=== PATIENT | male | born 1970 | race Caucasian/White ===

== ENCOUNTER 2020-11-22 17:36 | Emergency (ER) | payer OTHER ==
[2020-11-22 17:55] VITALS: BP 149/93; PULSE 68; RESP 16; TEMP 98.7
[2020-11-22] MEDS ORDERED: OFLOXACIN 0.3% OPHTH DROPS 5 ML BOTTLE LEFT EAR STA (18:31)
--- NOTE | 2020-11-22 18:32 | ED ---
ENT HPI - General Chief complaint: ENT Stated complaint: Lt Ear Bleeding Time Seen by Provider: 11/22/20 18:03 Source: patient Mode of arrival: ambulatory Limitations: no limitations - History of Present Illness Initial comments: 50-year-old male patient presents to the emergency department today for evaluation of blood coming from his left ear. Patient states that he did clean his ear with Q-tip last night, states he had no blood at that time. States today he felt like his ear was muffled with some pressure. States that he went to scratch his ear today and noticed blood coming from the canal. Reports some mild tenderness. Denies any significant pain. His any fever or chills. States he [place]. Denies any other symptoms or concerns. - Related Data Allergies Allergy/AdvReac Type Severity Reaction Status Date / Time No Known Allergies Allergy Verified 11/22/20 17:55 Review of Systems ROS Statement: Those systems with pertinent positive or pertinent negative responses have been documented in the HPI. ROS Other: All systems not noted in ROS Statement are negative. Past Medical History Past Medical History: Diabetes Mellitus History of Any Multi-Drug Resistant Organisms: None Reported Past Surgical History: Joint Replacement Additional Past Surgical History / Comment(s): left hip replacement Past Psychological History: No Psychological Hx Reported Smoking Status: Current every day smoker Past Alcohol Use History: None Reported, Abuse Past Drug Use History: None Reported General Exam Limitations: no limitations General appearance: alert, in no apparent distress, other (This well-developed, well-nourished adult male patient in no acute distress. Vital signs upon presentation are temperature 98.7F, pulse 68, respirations 16, blood pressure 149/93, pulse ox 97% on room air.) Eye exam: Present: normal appearance, PERRL, EOMI. Absent: scleral icterus, conjunctival injection, periorbital swelling ENT exam: Present: normal exam, normal oropharynx, mucous membranes moist, other (There is bloody drainage in the left ear canal. Some soft tissue swelling and tenderness noted as well.). Absent: TM's normal bilaterally ((But hasn't secured by blood.) Respiratory exam: Present: normal lung sounds bilaterally. Absent: respiratory distress, wheezes, rales, rhonchi, stridor Cardiovascular Exam: Present: regular rate, normal rhythm, normal heart sounds. Absent: systolic murmur, diastolic murmur, rubs, gallop, clicks Neurological exam: Present: alert, oriented X3, CN II-XII intact Psychiatric exam: Present: normal affect, normal mood Skin exam: Present: warm, dry, intact, normal color. Absent: rash Course Vital Signs 11/22/20 17:52 Temperature 98.7 F Pulse Rate 68 Respiratory 16 Rate Blood Pressure 149/93 O2 Sat by Pulse 97 Oximetry Medical Decision Making - Medical Decision Making 50-year-old male patient presents for evaluation of bloody drainage from the left ear. Physical examination did reveal bloody drainage in the left ear canal some soft tissue swelling and tenderness. Tympanogram was obscured by bloody drainage. He was given also oxygen dropped a possible otitis externa. Will be discharged with follow up with ENT specialty as soon as possible. He is instructed to follow-up with his primary care physician for recheck in 1-2 days. Return parameters were discussed in detail. He verbalizes understanding and agrees with this plan. Case discussed with my attending Dr. Hyman who also evaluated the patient. Disposition Clinical Impression: Left otitis externa Disposition: HOME SELF-CARE Condition: Good Instructions (If sedation given, give patient instructions): Otitis Externa (ED) Additional Instructions: Do 5 drops to the left ear twice daily. Follow up with ENT specialist as soon as possible. Return for any new, worsening, or concerning symptoms. Is patient prescribed a controlled substance at d/c from ED?: No Referrals: Nonstaff,Physician [Primary Care Provider] - 1-2 days Time of Disposition: 18:32
== END 2020-11-22 19:08 | disposition home or self-care (01) ==
LOC: EC 17:36
DX: H60.92 Unspecified otitis externa, left ear (principal); E11.9 Type 2 diabetes mellitus without complications; F17.200 Nicotine dependence, unspecified, uncomplicated
CPT/HCPCS: 99282